=== PATIENT | male | born 1980 | race Caucasian/White ===

== ENCOUNTER 2017-03-07 18:42 | Emergency (ER) | payer OTHER ==
[2017-03-07] MEDS ORDERED: HYDROcod/ACETAM 5/325 MG TABLET PO STA (19:24)
[2017-03-07] MEDS ORDERED: HYDROcod/ACETAM 5/325 MG TABLET ONE (19:26)
== END 2017-03-07 19:52 | disposition home or self-care (01) ==
DX: S62.663A Nondisplaced fracture of distal phalanx of left middle finger, initial encounter for closed fracture (principal); W22.8XXA Striking against or struck by other objects, initial encounter; R03.0 Elevated blood-pressure reading, without diagnosis of hypertension
CPT/HCPCS: 73140; 99283; A9270

== ENCOUNTER 2022-09-22 16:00 | Outpatient (CLI) | payer OTHER ==
--- NOTE | 2022-09-22 16:55 | XRAY Report ---
PROCEDURE: Shoulder 2 View LT INDICATIONS: L SHOULDER PX TECHNIQUE: 2 views of the shoulder were acquired. COMPARISON: None. FINDINGS: Bones: No fractures or dislocations. No suspicious bony lesions. Visualized ribs appear intact. Soft tissues: No suspicious soft tissue calcifications. IMPRESSION: No osseous lesion. If symptoms and/or clinical concern for pathology persists, further assessment wit h advanced imaging (CT, MR, bone scan) should be considered. Reviewed by: Ana Rosario MD, PhD on 09/22/2022 4:54 PM PST Approved by: Ana Rosario MD, PhD on 09/22/2022 4:54 PM PST Station ID: [id number]
== END 2022-09-22 16:01 | disposition home or self-care (01) ==
LOC: DI.N 16:00
PROVIDERS: ATTEND Student in an Organized Health Care Education/Training Program
DX: M25.512 Pain in left shoulder (principal)

== ENCOUNTER 2023-07-17 20:40 | Emergency (ER) | payer OTHER ==
[2023-07-17 20:59] VITALS: BP 131/88; O2SAT 98
--- OUTSIDE RECORDS SUMMARY | 2023-07-17 21:12 | EXTERNAL MEDICAL SUMMARY RPT | Continuity of Care Document ---
Author Name Unknown Address [address] [place] [address] Phone Organization [facility] Address [address] [place] [address] Phone Care Team Providers Care Consumer Insights Specialist Name Role Phone Marina Carson Unavailable Unavailable Allergies and Intolerances date description facility reaction severity (no date) No Known Drug Allergies [facility] (no lb ction) (no severity) Problems date description facility 2023-04-20 00:00 Patient left without being seen [facility] Social History date description facility 2023-04-20 00:00 Never smoked tobacco (finding) [facility] Vital Signs date measurement value units 2023-04-20 00:00 BMI 28.1 kg/m2 2023-04-20 00:00 BP_diastolic 77 mmHg 2023-04-20 00:00 BP_systolic 124 mmHg 2023-04-20 00:00 heart_rate 56 /min 2023-04-20 00:00 height_metric 170.18 cm 2023-04-20 00:00 height_standard 67 in 2023-04-20 00:00 o2_saturation 98 % 2023-04-20 00:00 respiration_rate 16 /min 2023-04-20 00:00 temperature_metric 36.44 C 2023-04-20 00:00 temperature_standard 97.6 F 2023-04-20 00:00 weight_metric 81.64 kg 2023-04-20 00:00 weight_standard 179.99 lb
--- NOTE | 2023-07-17 21:47 | ED Physician Documentation ---
PD HPI UPPER EXT INJURY - Stated complaint Stated Complaint: LT THUMB LAC - Chief complaint Chief Complaint: Laceration - History obtained from History obtained from: Patient - Additonal information Additional information: HPI from patient. At approximately 17:30 tonight while at home slicing vegetables with a knife, patient accidentally cut the tip of his left thumb with the knife. Patient is right hand-dominant. He is UTD on tetanus. Review of Systems Skin: reports: Laceration (s) Neurologic: denies: Focal weakness, Numbness PD PAST MEDICAL HISTORY - Past Medical History Past Medical History: No - Past Surgical History Past Surgical History: No - Present Medications Home Medications: Ambulatory Orders Medication Instructions Recorded Confirmed Hydrocodone/Acetaminophen 1 - 2 each PO Q6H PRN #7 tablet 03/07/17 [Hydrocodon-Acetaminophen 5-325] cephALEXin [Keflex] 500 mg PO Q6H 7 Days capsule 03/07/17 - Allergies Allergies/Adverse Reactions: Allergies Allergy/AdvReac Type Severity Reaction Status Date / Time No Known Drug Allergies Allergy Verified 07/17/23 20:52 - Social History Does the pt smoke?: No Smoking Status: Never smoker Does the pt drink ETOH?: Yes Does the pt have substance abuse?: No - Immunizations Immunizations are current?: Yes PD ED PE NORMAL - Vitals Vital signs reviewed: Yes - General General: Alert and oriented X 3, No acute distress, Well developed/nourished - Neuro Neuro: No motor deficit, No sensory deficit PD ED PE EXPANDED - Extremities Extremities: Other (flap laceration to tip of left thumb, part of which is adjacent to the distal tip of the nail but no involvement of nail nor nailbed. ) Results - Vitals Vitals: Oxygen O2 Source Room air Procedures - Laceration (location) Finger left Length in cm: 0.5 Wound type: Linear, Superficial, Clean Neurovascular status: Sensory intact Wound preparation: Chlorhexadine Skin layer closure: Dermabond, Steri strips Other: Patient tolerated well, No complications, Neurovascular intact, Tetanus UTD PD Medical Decision Making - ED course Complexity details: considered differential, d/w patient ED course: mostly superficial flap laceration to tip of left thumb, wound edges reapproximated with dermabond reinforced with steri-strips. Return precautions discussed. Departure - Departure Disposition: 01 Home, Self Care Clinical Impression: Laceration of thumb Condition: Good Instructions: ED Laceration Ext Skin Glue Comments: Your thumb laceration was repaired with both tissue adhesive ("glue") and steri- strips. Both the steri-strips and the adhesive will gradually peel/slough off over the next 5-7 days. Forms: PCP List Discharge Date/Time: 07/17/23 22:37
== END 2023-07-17 22:37 | disposition home or self-care (01) ==
LOC: ED 20:40
DX: S61.012A Laceration without foreign body of left thumb without damage to nail, initial encounter (principal); W26.0XXA Contact with knife, initial encounter; Y93.G1 Activity, food preparation and clean up; Y92.009 Unspecified place in unspecified non-institutional (private) residence as the place of occurrence of the external cause
CPT/HCPCS: 12001; 99281